=== PATIENT | female | born 1980 | race Caucasian/White ===

== ENCOUNTER 2024-05-21 17:54 | Emergency (ER) | payer OTHER, SELFPAY ==
[2024-05-21 17:55] VITALS: BP 120/74; PULSE 87; RESP 16; TEMP 36.4; O2SAT 98; BMI 28.0
--- NOTE | 2024-05-21 18:54 | ED.VIS.FEGU ---
HPI HPI - Female History of Present Illness Chief Complaint: Vag Bld, Preg Detail of Chief Complaint: Vaginal bleeding that started at 1600 Informant: patient and spouse/S.O. Pain Pain: Positive for - (No pelvic or lower abdominal pain) Bleeding Issue: Positive for Vaginal bleeding; Negative for Passing clots or Passing tissue Onset: Today (1600) Context: Sudden Onset (Patient states she put a pad on. She has not checked to see how much bleeding.) Associated Symptoms Associated Symptoms: Positive for Frequency and Missed Period; Negative for Dysuria, Urgency, Hematuria or Irregular Period Test: Positive Sexually: Positive for Active P: 4 Ab: 3 Narrative Narrative: Patient is a 43-year-old G8, P4 AB 3 (spontaneous) female who presents because of vaginal bleeding. She has had 4 ultrasounds. is intrauterine. She had bleeding at 6 weeks. It was determined to be due to a subchorionic hemorrhage. Follow-up ultrasounds revealed this resolved. She presently denies any lower abdominal pain, pelvic pain or low back pain. Patient does have frequency otherwise no urinary symptoms. Patient states she has O+ blood. Patient states she is never had a workup to determine the etiology of her miscarriages. There is no history of any bleeding diastases or any family history of any hematologic problems. She is followed by the OBs at the [facility]. Prior similar symptoms: Yes (6 weeks due to subchorionic hemorrhage.) Recent Illness/Hospitalization: No PFSH PFSH Medical History no medical history no medical history Allergy/AdvReac Type Severity Reaction Status Date / Time latex Allergy Intermediate Rash Verified 05/21/24 17:57 Social History (Updated 05/21/24 @ 18:[address] Hai Garcia MD) household members: spouse and children Smoking Status: Never smoker ROS ROS ED Constitutional Constitutional ED: Denies chills, fever(s) or subjective Eyes Eyes: Denies blurry vision or change in vision ENT ENT ED: Denies rhinorrhea or sore throat Cardiovascular Cardiovascular: Denies chest pain or palpitations Respiratory/Chest Respiratory/Chest: Denies cough, dyspnea or dyspnea on exertion Gastrointestinal Gastrointestinal: Denies abdominal pain, diarrhea, nausea or vomiting Genitourinary Genitourinary ED: Reports urinary frequency; Denies dysuria or hematuria Musculoskeletal Musculoskeletal: Denies arthralgias or neck pain Hematologic/Lymphatic Hematologic/Lymphatic: Denies easy bleeding or easy bruising EXAM Physical Exam Const Vital Signs: 05/21/24 17:55 Temperature 97.6 F L Temperature Source Temporal Pulse Rate 87 Respiratory Rate 16 Blood Pressure 120/74 Blood Pressure Mean 89 Pulse Ox 98 Oxygen Delivery Method Room Air Positive well nourished and well developed General Appearance ED: well developed and NAD; Negative for odor of alcohol detected HEENT Reports moist mucous membranes HEENT Narrative: Head is atraumatic no cephalic. Nares patent. Mucosa moist. Eyes PERRL and EOMs intact bilaterally General Eye ED: Negative for pale conjunctiva or scleral icterus Neck no lymphadenopathy, supple and no JVD Resp normal respiratory effort and clear to auscultation bilaterally Cardio regular rate, regular rhythm, S1 normal heart sound, no murmurs and no JVD GI normal to inspection, nondistended, normoactive bowel sounds, soft to palpation, non-tender and no masses; Negative for non-distended GI Narrative: Slight tympany to percussion. Back/Spine no CVA tenderness Extremity normal to inspection Neuro oriented x3 and CN's II-XII intact bilaterally Sensorium / Orientation: alert Psych mental status grossly normal Skin no rashes or lesions noted and no wounds MDM MDM MDM Narrative Medical decision making narrative: Since patient having no pain minimal amount of bleeding and has had 4 pelvic ultrasounds that reveals a single live intrauterine will have nurse check for heart tones. If this is unsuccessful we will perform transabdominal ultrasound to visualize the fetus and heartbeat. Treatment and Re-Evaluation Narrative: Transabdominal ultrasound reveals single live intrauterine . There is no obvious abnormality. In my opinion since patient has no pain minimal bleeding and transabdominal ultrasound performed in the ED does not reveal anything there is no indication for calling in the tech for an emergent ultrasound. Discharge Plan Triage Chief Complaint: Vag Bld, Preg ED Provider: Hai Garcia Dx/Rx/DC Orders Clinical Impression: Threatened in first trimester Instructions: Miscarriage Threatened Primary Care Provider: NOT,DEFINED Referrals: NOT,DEFINED [Primary Care Provider] - Activity Restrictions/Additional Instructions: 1. Pelvic rest 2. If you are bleeding more than 1 pad per hour for 4 continuous hours or passing large clots return to the emergency department otherwise follow-up with your bobtail driver at the [facility] Print Language: Montserratian Disposition Disposition: Home, Self Care
[2024-05-21 19:30] VITALS: BP 117/69; PULSE 74; RESP 16; TEMP 36.7; O2SAT 98
== END 2024-05-21 19:41 | disposition home or self-care (01) ==
LOC: ED 19:36
PROVIDERS: Emergency Provider Emergency Medicine; Visit Provider Emergency Medicine
DX: O20.0 Threatened abortion (principal); O09.521 Supervision of elderly multigravida, first trimester; O99.891 Other specified diseases and conditions complicating pregnancy; R35.0 Frequency of micturition; Z3A.00 Weeks of gestation of pregnancy not specified
CPT/HCPCS: 99282

== ENCOUNTER 2024-08-26 14:32 | Outpatient (CLI) | payer OTHER, SELFPAY ==
[2024-08-26 14:46] VITALS: BP 129/72; PULSE 88; PULSE 92; O2SAT 99
[2024-08-26 14:50] LABS: Color, Urine Yellow (Yellow); Glucose, Dipstick Normal (Normal); Ketone-Dipstick Negative (Negative); Leukocyte Esterase-Dipstick Negative /ul (Negative); Nitrite-Dipstick Negative (Negative); Occult Blood-Urine Negative /ul (Negative); Protein-Dipstick 15 mg/dl (Negative); Urine Bilirubin Dipstick Negative (Negative); Urine Clarity Clear (Clear); Urine Urobilinogen Normal (Normal)
--- NOTE | 2024-08-26 15:12 | US_ITS ---
EXAM: US , LIMITED CLINICAL INDICATION: Fall -Attention to Placenta TECHNIQUE: Real-time limited ultrasound of the maternal uterus with image documentation. COMPARISON: No relevant prior studies available. FINDINGS: FETUS: Cephalic presentation. heart rate 140 bpm. PLACENTA: Evjpzxzkt-[id number], not low-lying. No evidence of hemorrhage, previa or abruption. Central umbilical insertion. Grade 1. AMNIOTIC FLUID: Maximum vertical pocket 5.1 cm. Appears adequate. CERVIX: Not well seen on the transabdominal exam but not visibly dilated. US/OB Limited (No Biometrics) IMPRESSION: No acute complications of the placenta. Normal amniotic fluid volume. Live intrauterine fetus, cephalic. Electronically Signed: Sakina Lindsey MD at 17:01 EST ,
[2024-08-26] MEDS: Lactated Ringers 500 ML 999 ML IV (16:03)
[2024-08-26 16:10] LABS: ROM Internal Control Test YES-OK TO RESULT pt. (Internal QC); ROM Patient Test Negative (Negative); Record Kit Lot#, ROM+ K1972
[2024-08-26 16:58] LABS: Fetal Fibronectin Negative
[2024-08-26 16:59] LABS: Record Kit Lot#, fFN D4035
--- NOTE | 2024-08-27 15:24 | OB.TRI.NOTE ---
HPI - General General Date of Admission: 08/26/24 Date of Service: 08/26/24 Chief Complaint: cramping HPI Narrative DEB CHAVARRIA, is a 44 F who presents fell on 08/22. No bleeding. Has had normal movement. Hx of PTC with previous pregnancies. Term deliveries. FFn negative ROM negative NST appropriate for gestation age. US without evidence of abruption IV fluid hydration Closed thick and hi Maternal Data Information Final SHELDON: 11/25/24 Gestational age: 27 weeks PFSH PFSH Home Medications ?Medication ?Instructions ?Recorded ?Last Taken ?Type amoxicillin 875 mg tablet 875 mg PO Q12H 08/26/24 08/26/24 08:30 History famotidine 20 mg tablet (Acid 20 mg PO DAILY 08/26/24 08/25/24 19:30 History Controller) linaclotide 72 mcg capsule 72 mcg PO DAILY 08/26/24 08/25/24 19:30 History (Linzess) vit no.95-ferrous 1 tab PO DAILY 08/26/24 08/25/24 19:30 History fumarate 28 mg-folic acid 800 mcg tablet () venlafaxine 150 mg 150 mg PO DAILY 08/26/24 08/25/24 19:30 History capsule,extended release 24 hr Allergy/AdvReac Type Severity Reaction Status Date / Time latex Allergy Intermediate Rash Verified 08/26/24 14:52 Social History (Updated 05/21/24 @ 18:[address] Hai Garcia MD) household members: spouse and children Smoking Status: Never smoker History 8 Elective abortions Hx Para 4 Spontaneous abortions Hx # Term Pregnancies Ectopic pregnancies Hx # Pregnancies Multiple births # of living children ROS Constitutional Constitutional: Denies fatigue, fever(s) or malaise Eyes Eyes: Denies change in vision ENT HEENT: Denies dizziness or headache(s) Cardiovascular Cardiovascular: Denies chest pain, dyspnea or lightheadedness Respiratory/Chest Respiratory/Chest: Denies cough or dyspnea Gastrointestinal Gastrointestinal: Denies change in bowel habits Genitourinary Genitourinary: Denies burning urination or genital lesions Integumentary Integumentary: Denies rash Neurologic Neurologic: Denies confusion, dizziness, headache(s), numbness or weakness Physical Exam Const alert and no apparent distress General Appearance: cooperative HEENT normocephalic Resp normal respiratory effort GI soft to palpation GI Narrative: gravid, nontender, appropriate for gestational age Extremity no calf tenderness General Extremity: edema Skin no wounds Rashes: No rashes noted Psych activity/motor behavior normal NST FHR Rate Baby A Baseline: 130 Variability:: Moderate Accelerations:: 15 x 15 Decelerations:: None NST Reactive:: Yes FHR Category:: Category I Uterine Activity:: intermittent to q3-4 Assessment & Plan (1) Irregular contractions: (2) 27 weeks gestation of : PLAN: Plan Labor precautions, bleeding precautions RH positive Discharge home
== END 2024-08-26 17:25 | disposition home or self-care (01) ==
LOC: WPOUT 14:37 → WP 14:38
PROVIDERS: Visit Provider Obstetrics & Gynecology
DX: O47.02 False labor before 37 completed weeks of gestation, second trimester (principal); O99.891 Other specified diseases and conditions complicating pregnancy; R25.2 Cramp and spasm; Z3A.27 27 weeks gestation of pregnancy
CPT/HCPCS: 96360; 59025; 59050; 76815; 81002; 82731; 84112; 99221; G0378

== ENCOUNTER 2024-09-20 17:45 | Outpatient (CLI) | payer OTHER, SELFPAY ==
[2024-09-20 18:02] VITALS: BP 127/72; PULSE 96
[2024-09-20 18:04] VITALS: PULSE 82; O2SAT 99
[2024-09-20 19:40] LABS: Mucous, Urine 0 SEEN /hpf (<or=2+); Red Blood Cells-Urine 0 SEEN /hpf (0-5)
[2024-09-20 19:52] LABS: Color, Urine Yellow (Yellow); Glucose, Dipstick Normal (Normal); Ketone-Dipstick 15 mg/dl (Negative); Leukocyte Esterase-Dipstick 25 /ul (Negative); Nitrite-Dipstick Negative (Negative); Occult Blood-Urine Negative /ul (Negative); Protein-Dipstick 15 mg/dl (Negative); Urine Bilirubin Dipstick Negative (Negative); Urine Clarity Sl. Cloudy (Clear); Urine Urobilinogen Normal (Normal)
[2024-09-20 20:00] LABS: Bacteria 2+ /hpf (None Seen); Squamous Epithelial Cells - UA 0-5 SEEN /hpf (5-10); White Blood Cells 0-5 SEEN /hpf (0-5)
[2024-09-20 20:17] LABS: Fetal Fibronectin Negative
[2024-09-20 20:18] LABS: Record Kit Lot#, fFN D4035
--- NOTE | 2024-09-20 20:42 | OB.TRI.NOTE ---
HPI - General General Date of Admission: 09/20/24 Date of Service: 09/20/24 Chief Complaint: cramping HPI Narrative DEB CHAVARRIA, is a 44 F who presents cramping and contractions since noon. No bleeding. Possible dysuria. No deliveries Negative ffn. Urine sent for culture. Patient felt better after IV fluid bolus. closed /thick/ high Maternal Data Information Final SHELDON: 11/25/24 Gestational age: 30+4 PFSH PFSH Home Medications ?Medication ?Instructions ?Recorded ?Last Taken ?Type famotidine 20 mg tablet (Acid 20 mg PO DAILY 08/26/24 09/19/24 21:00 History Controller) 20 mg linaclotide 72 mcg capsule 72 mcg PO DAILY 08/26/24 09/19/24 08:00 History (Linzess) 72 mcg vit no.95-ferrous 1 tab PO DAILY 08/26/24 09/19/24 21:00 History fumarate 28 mg-folic acid 800 mcg 1 TAB tablet () venlafaxine 150 mg 150 mg PO DAILY 08/26/24 09/19/24 21:00 History capsule,extended release 24 hr 150 mg Allergy/AdvReac Type Severity Reaction Status Date / Time latex Allergy Intermediate Rash Verified 09/20/24 17:54 Social History household members: spouse and children Smoking Status: Never smoker History 8 Elective abortions Hx Para 4 Spontaneous abortions Hx # Term Pregnancies Ectopic pregnancies Hx # Pregnancies Multiple births # of living children Physical Exam Const alert and no apparent distress General Appearance: cooperative HEENT normocephalic Resp normal respiratory effort GI soft to palpation GI Narrative: gravid, nontender, appropriate for gestational age Manual OB Exam: dilated closed, effaced thick and station high Amniotic Fluid: no amniotic fluid noted Extremity normal to inspection Psych activity/motor behavior normal NST FHR Rate Baby A Baseline: 125 Variability:: Moderate Accelerations:: 15 x 15 Decelerations:: None NST Reactive:: Yes FHR Category:: Category I Uterine Activity:: irregular nonpalpable Assessment & Plan (1) 30 weeks gestation of : (2) uterine contractions: PLAN: Plan Discharge home. Increase PO hydration.
[2024-09-20] MEDS: Lactated Ringers 1,000 ML 999 ML IV (20:48)
== END 2024-09-20 22:00 | disposition home or self-care (01) ==
LOC: WPOUT 17:50 → WP 17:50
PROVIDERS: Referring Provider Obstetrics & Gynecology; Visit Provider Obstetrics & Gynecology
DX: O47.03 False labor before 37 completed weeks of gestation, third trimester (principal); R25.2 Cramp and spasm; Z79.899 Other long term (current) drug therapy; Z3A.30 30 weeks gestation of pregnancy
CPT/HCPCS: 96360; 59025; 59050; 81001; 82731; 87086; 87088; 99221; G0378

== ENCOUNTER 2024-10-06 10:32 | Outpatient (CLI) | payer OTHER, SELFPAY ==
[2024-10-06] VITALS (14 sets, daily range): BP systolic 100–117; BP diastolic 54–78; PULSE 100–134; RESP 20; TEMP 36.9–37.2; O2SAT 84–100; BMI 29.8
[2024-10-06] MEDS: Lactated Ringers 1,000 ML 999 ML IV (11:40)
[2024-10-06] MEDS: Ondansetron 4 MG/2 ML Vial IV (11:51)
[2024-10-06 11:53] LABS: Color, Urine Yellow (Yellow); Glucose, Dipstick Normal (Normal); Leukocyte Esterase-Dipstick 100 /ul (Negative); Nitrite-Dipstick Negative (Negative); Occult Blood-Urine Negative /ul (Negative); Protein-Dipstick 30 mg/dl (Negative); Specific Gravity, Urine 1.025 (1.002-1.030); Urine Clarity Sl. Cloudy (Clear); Urine Urobilinogen 1 mg/dl (Normal)
[2024-10-06 11:54] LABS: Hemoglobin 10.1 g/dL (12.0-15.0); Mean Corp Hgb Conc 33.7 g/dL (32-36); Mean Corpuscular Hgb 32.2 pg (27.0-32.0); Mean Corpuscular Volume 95.5 fL (81-99); Mean Platelet Vol. 10.4 fl (6.2-12.0); Platelet Count 151 K/mm3 (150-450); RBC Distribution Width CV 13.1 % (11.6-14.6); Red Blood Count 3.14 M/mm3 (4.2-5.4); Urine Bilirubin Dipstick 1 mg/dL (Negative); White Blood Count 7.2 K/mm3 (4.4-11.0)
[2024-10-06 11:57] LABS: Ketone-Dipstick 150 mg/dl (Negative)
[2024-10-06 12:00] LABS: Transitional Epithelial - Ur 0-5 SEEN /hpf (0-5); White Blood Cells 0-5 SEEN /hpf (0-5)
[2024-10-06 12:01] LABS: Bacteria 3+ /hpf (None Seen); Mucous, Urine 1+ /hpf (<or=2+); Red Blood Cells-Urine 0 SEEN /hpf (0-5); Squamous Epithelial Cells - UA 10-25 SEEN /hpf (5-10)
[2024-10-06 12:22] LABS: Bedside Glucose 70 mg/dL (74-106)
[2024-10-06] MEDS: Acetaminophen 500 MG Tablet 1000 MG PO (12:31)
[2024-10-06] MEDS: Lactated Ringers 1,000 ML 200 ML IV (12:50)
[2024-10-06 13:28] LABS: ALB/GLOB Ratio 0.7 RATIO (0.9-2.4); AST(SGOT) 14 U/L (15-37); Alanine Aminotransfer ALT/SGPT 13 U/L (13-56); Albumin, Serum 2.7 g/dL (3.2-5.0); Alkaline Phosphatase 145 U/L (45-117); Anion Gap 10 (5-15); BUN 7 mg/dL (7-18); BUN/Creat Ratio 13.1 RATIO (10-20); Calcium,Total 8.6 mg/dL (8.5-10.1); Chloride 105 mmol/L (98-107); Creatinine, Serum 0.54 mg/dL (0.55-1.02); EST Glomerular Filtration Rate 133 mL/min (>60); Est Glom Filt Rate - Afr Amer 161 mL/min (>60); Glucose 85 mg/dL (74-106); Potassium 3.7 mmol/L (3.5-5.1); Protein, Total 6.7 g/dL (6.4-8.2); Sodium Level 136 mmol/L (136-145)
--- NOTE | 2024-10-06 13:39 | US_ITS ---
PROCEDURE: LIMITED ABDOMINAL ULTRASOUND REASON FOR EXAM: Right upper quadrant pain. 33 weeks . COMPARISON: None FINDINGS: Liver: The liver measures 14.9 cm in length and is normal in echogenicity. No focal hepatic mass is identified. There is hepatopetal portal venous flow. Gallbladder: The gallbladder contains sludge. No gallstones are noted. Negative sonographic Naik's sign. No pericholecystic fluid noted. No gallbladder wall thickening noted. Common bile duct: Normal measuring 4.3 mm. Pancreas: Not well visualized secondary to overlying bowel gas. Right kidney: 11.4 cm x 5.1 cm x 5.1 cm. Normal cortical thickness and echogenicity. No renal calculi identified. No hydronephrosis. Visualized portions of the right kidney are unremarkable. No right upper quadrant ascites. US/Gallbladder IMPRESSION: Gallbladder sludge otherwise unremarkable ultrasound of the right upper quadran t. Reading Location: [id number]
[2024-10-06] MEDS: Morphine 2 MG/ML Syringe 1 MG IV (13:55)
[2024-10-06 14:15] LABS: Amylase 40 U/L (25-115); Lipase 35 U/L (73-393)
[2024-10-06 16:06] LABS: Bedside Glucose 65 mg/dL (74-106)
[2024-10-06 16:06] LABS: Bedside Glucose 63 mg/dL (74-106)
[2024-10-06 16:25] LABS: Bedside Glucose 65 mg/dL (74-106)
[2024-10-06] MEDS: Metoclopramide 10 MG/2 ML Vial IV (16:38)
[2024-10-06 16:53] LABS: Bedside Glucose 73 mg/dL (74-106)
--- NOTE | 2024-10-06 17:13 | OB.TRI.NOTE ---
HPI - General HPI Narrative DEB CHAVARRIA, is a 44 F who presents to triage with RUQ pain, nausea, emesis, headache, seeing spots and cramping. She is GDM A2 and unable to keep an food or drink down. Maternal Data Information SHELDON Calculator Estimated Delivery Date Method Current WG Current Estimate 11/25/24 Manual 32w 6d PFSH PFSH Home Medications ?Medication ?Instructions ?Recorded ?Last Taken ?Type famotidine 20 mg tablet (Acid 20 mg PO DAILY 08/26/24 10/05/24 20:00 History Controller) 20 mg linaclotide 72 mcg capsule 72 mcg PO DAILY 08/26/24 10/05/24 20:00 History (Linzess) 72 mcg vit no.95-ferrous 1 tab PO DAILY 08/26/24 10/05/24 20:00 History fumarate 28 mg-folic acid 800 mcg 1 TAB tablet () venlafaxine 150 mg 150 mg PO DAILY 08/26/24 10/05/24 20:00 History capsule,extended release 24 hr 150 mg insulin NPH isoph U-100 human 100 10 unit subcut DAILY 10/06/24 10/05/24 20:00 History unit/mL (3 mL) subcutaneous pen 10 units (Humulin N NPH U-100 Insulin KwikPen) ondansetron 4 mg disintegrating 4 mg PO Q8H PRN nausea and 10/06/24 Unknown Rx tablet vomiting #20 tabs oseltamivir 75 mg capsule (Tamiflu) 75 mg PO BID 5 days #10 caps 10/06/24 Unknown Rx Allergy/AdvReac Type Severity Reaction Status Date / Time latex Allergy Intermediate Rash Verified 10/06/24 16:28 Social History household members: spouse and children Smoking Status: Never smoker History 8 Elective abortions Hx Para 4 Spontaneous abortions Hx # Term Pregnancies Ectopic pregnancies Hx # Pregnancies Multiple births # of living children ROS Eyes Eyes: Denies blurry vision Cardiovascular Cardiovascular: Reports none; Denies chest pain at rest, chest pain with activity or dizziness Respiratory/Chest Respiratory/Chest: Denies cough or dyspnea Gastrointestinal Gastrointestinal: Reports other Genitourinary Genitourinary: Denies dysuria Musculoskeletal Musculoskeletal: Reports none Integumentary Integumentary: Reports none; Denies rash Neurologic Neurologic: Denies dizziness or other visual disturbances Psychiatric Psychiatric: Reports none Physical Exam Const alert and no apparent distress General Appearance: cooperative Orientation / Consciousness: awake Exam Limitations: no limitations HEENT normocephalic Eyes General Eye: normal appearance of both eyes Neck full ROM Chest inspection of chest normal Resp normal respiratory effort and normal air movement Effort and Inspection: symmetric chest movement Auscultation: clear to auscultation bilaterally Cardio regular rate GI soft to palpation, non-tender and non-distended Inspection: and other Back/Spine normal ROM Extremity full ROM, normal capillary refill and no calf tenderness Skin no rashes or lesions noted Neuro oriented x3 and CN's II-XII intact bilaterally Psych mental status grossly normal NST FHR Rate Baby A Baseline: 150 Variability:: Moderate Accelerations:: 15 x 15 and 10 x 10 NST Reactive:: Yes Uterine Activity:: irritability Assessment & Plan (1) uterine contractions: (2) Nausea & vomiting: (3) 32 weeks gestation of : (4) GDM, class A2: (5) RUQ abdominal pain: (6) Headache: PLAN: Plan BP normal Labs normal IV fluids- 2 liters bolus- completed Zofran 4 mg IV for nausea Taking oral Gallbladder US shows sludge No insulin until taking full PO + Influenza - Tamaflu 75 mg PO BID x 5 days D/C home with follow up in office next week Dr. Martins present and involved with plan of care
== END 2024-10-06 17:39 | disposition home or self-care (01) ==
LOC: WPOUT 10:38 → WP 10:39
PROVIDERS: Obstetrics & Gynecology; Referring Provider Advanced Practice Midwife; Visit Provider Advanced Practice Midwife
DX: O47.03 False labor before 37 completed weeks of gestation, third trimester (principal); Z79.4 Long term (current) use of insulin; Z79.899 Other long term (current) drug therapy; Z3A.32 32 weeks gestation of pregnancy; O21.9 Vomiting of pregnancy, unspecified; O24.414 Gestational diabetes mellitus in pregnancy, insulin controlled; O99.891 Other specified diseases and conditions complicating pregnancy; R10.11 Right upper quadrant pain; R51.9 Headache, unspecified
CPT/HCPCS: 96365; 96366; 96361; 36415; 59025; 59050; 76705; 80053; 81001; 82150; 82962; 83690; 85027; 87086; 87088; 87631; 99221; G0378; J2405

== ENCOUNTER 2024-10-17 10:25 | Outpatient (CLI) | payer OTHER, SELFPAY ==
[2024-10-17 10:46] VITALS: BMI 31.0
[2024-10-17] MEDS: Lactated Ringers 1,000 ML 999 ML IV ×2 (11:05→12:37)
[2024-10-17 11:11] VITALS: PULSE 86; O2SAT 98
[2024-10-17 11:12] VITALS: BP 123/84; PULSE 78; RESP 16; TEMP 36.6
[2024-10-17 12:30] LABS: Bedside Glucose 74 mg/dL (74-106)
[2024-10-17 12:47] LABS: Color, Urine Yellow (Yellow); Glucose, Dipstick Normal (Normal); Ketone-Dipstick Negative (Negative); Leukocyte Esterase-Dipstick Negative /ul (Negative); Nitrite-Dipstick Negative (Negative); Occult Blood-Urine Negative /ul (Negative); Protein-Dipstick 15 mg/dl (Negative); Urine Bilirubin Dipstick Negative (Negative); Urine Clarity Sl. Cloudy (Clear); Urine Urobilinogen Normal (Normal); Urine pH 6.5 (5.0 - 8.0)
[2024-10-17 13:17] LABS: Mucous, Urine 0 SEEN /hpf (<or=2+); White Blood Cells 0 SEEN /hpf (0-5)
[2024-10-17 13:18] LABS: Color, Urine Yellow (Yellow); Glucose, Dipstick Normal (Normal); Ketone-Dipstick Negative (Negative); Leukocyte Esterase-Dipstick Negative /ul (Negative); Nitrite-Dipstick Negative (Negative); Occult Blood-Urine Negative /ul (Negative); Protein-Dipstick Negative (Negative); Urine Bilirubin Dipstick Negative (Negative); Urine Clarity Clear (Clear); Urine Urobilinogen Normal (Normal); Urine pH 6.5 (5.0 - 8.0)
[2024-10-17 13:43] LABS: Bacteria 1+ /hpf (None Seen); Red Blood Cells-Urine 0-5 SEEN /hpf (0-5); Squamous Epithelial Cells - UA 0-5 SEEN /hpf (5-10)
[2024-10-17] MEDS: Ondansetron 4 MG/2 ML Vial IV (14:08)
[2024-10-17] MEDS: Terbutaline 1 MG/ML Vial 0.25 MG SC (14:11)
--- NOTE | 2024-10-17 19:45 | OB.TRI.NOTE ---
HPI - General General Date of Admission: 10/17/24 Date of Service: 10/17/24 Chief Complaint: contractions HPI Narrative DEB CHAVARRIA, is a 44 F who presents from the office with frequent contractions. Was ill about 2 weeks ago with flu. No bleeding No loss of fluid. 1 cm in office. IVF bolus of 1 liter. No cervical change. Was not able to give a urine sample after fluid bolus. Another 500 cc given. Urine clear. No cervical change. Terb given for comfort and contractions decreased. Cat I tracing. Maternal Data Information SHELDON Calculator Estimated Delivery Date Method Current WG Current Estimate 11/25/24 Manual 34w 3d Final SHELDON: 11/25/24 Gestational age: 34+3 PFSH PFSH Home Medications ?Medication ?Instructions ?Recorded ?Last Taken ?Type linaclotide 72 mcg capsule 72 mcg PO DAILY 08/26/24 10/05/24 20:00 History (Linzess) 72 mcg vit no.95-ferrous 1 tab PO DAILY 08/26/24 10/05/24 20:00 History fumarate 28 mg-folic acid 800 mcg 1 TAB tablet () venlafaxine 150 mg 150 mg PO DAILY 08/26/24 10/05/24 20:00 History capsule,extended release 24 hr 150 mg insulin NPH isoph U-100 human 100 10 unit subcut DAILY 10/06/24 10/16/24 History unit/mL (3 mL) subcutaneous pen (Humulin N NPH U-100 Insulin KwikPen) Allergy/AdvReac Type Severity Reaction Status Date / Time latex Allergy Intermediate Rash Verified 10/17/24 10:47 Social History household members: spouse and children Smoking Status: Never smoker History 8 Elective abortions Hx Para 4 Spontaneous abortions Hx # Term Pregnancies Ectopic pregnancies Hx # Pregnancies Multiple births # of living children NST FHR Rate Baby A Baseline: 130 Variability:: Moderate Accelerations:: 15 x 15 Decelerations:: None NST Reactive:: Yes FHR Category:: Category I Assessment & Plan (1) 34 weeks gestation of : (2) uterine contractions: PLAN: Plan Labor precautions. Keep scheduled appointments. Increase hydration
== END 2024-10-17 16:20 | disposition home or self-care (01) ==
LOC: WPOUT 10:28 → WP 10:29
PROVIDERS: Referring Provider Obstetrics & Gynecology; Visit Provider Obstetrics & Gynecology
DX: O47.03 False labor before 37 completed weeks of gestation, third trimester (principal); Z3A.34 34 weeks gestation of pregnancy
CPT/HCPCS: 96374; 96361; 59025; 59050; 81001; 81002; 82962; 99221; G0378; J2405

== ENCOUNTER 2024-10-23 15:26 | Outpatient (CLI) | payer OTHER, SELFPAY ==
[2024-10-23] VITALS (12 sets, daily range): BP systolic 120–162; BP diastolic 70–94; PULSE 81–98; RESP 16; TEMP 36.4; O2SAT 94; BMI 30.1
[2024-10-23 17:08] LABS: Hematocrit 31.5 % (37-47); Hemoglobin 10.5 g/dL (12.0-15.0); Mean Corp Hgb Conc 33.3 g/dL (32-36); Mean Corpuscular Hgb 31.7 pg (27.0-32.0); Mean Corpuscular Volume 95.2 fL (81-99); Platelet Count 242 K/mm3 (150-450); RBC Distribution Width CV 12.6 % (11.6-14.6); RBC Distribution Width SD 43.2 fl (35.1-43.9); Red Blood Count 3.31 M/mm3 (4.2-5.4); White Blood Count 10.1 K/mm3 (4.4-11.0)
[2024-10-23 17:21] LABS: Color, Urine Yellow (Yellow); Glucose, Dipstick Normal (Normal); Ketone-Dipstick 5 mg/dl (Negative); Leukocyte Esterase-Dipstick Negative /ul (Negative); Nitrite-Dipstick Negative (Negative); Occult Blood-Urine Negative /ul (Negative); Protein-Dipstick 15 mg/dl (Negative); Urine Bilirubin Dipstick Negative (Negative); Urine Clarity Sl. Cloudy (Clear); Urine Urobilinogen Normal (Normal); Urine pH 6.5 (5.0 - 8.0)
[2024-10-23 17:24] LABS: AST(SGOT) 10 U/L (15-37); Alanine Aminotransfer ALT/SGPT 20 U/L (13-56); EST Glomerular Filtration Rate 116 mL/min (>60); Est Glom Filt Rate - Afr Amer 141 mL/min (>60); Uric Acid 4.5 mg/dL (2.6-6.0)
[2024-10-23 17:39] LABS: ROM Internal Control Test YES-OK TO RESULT pt. (Internal QC); ROM Patient Test Negative (Negative); Record Kit Lot#, ROM+ K2871
--- NOTE | 2024-10-23 18:18 | OB.TRI.NOTE ---
HPI - General General Date of Admission: 10/23/24 Date of Service: 10/23/24 Chief Complaint: ctx's HPI Narrative DEB CHAVARRIA, is a 44 F who presents from office for eval of ctx's. Has been feeling ctx's for days to weeks. Worsening in intensity. No vb. [place] 1 small gush of fluid after vaginal exam in office. No constant leaking. No PERRY or vision changes. Maternal Data Information SHELDON Calculator Estimated Delivery Date Method Current WG Current Estimate 11/25/24 Manual 35w 2d PFSH PFSH Medical History (Updated 10/23/24 @ 18:[address] Viviana Lawler, DO) uterine contractions Home Medications ?Medication ?Instructions ?Recorded ?Last Taken ?Type linaclotide 72 mcg capsule 72 mcg PO DAILY diverticulitis 08/26/24 10/22/24 History (Linzess) vit no.95-ferrous 1 tab PO DAILY 08/26/24 10/22/24 History fumarate 28 mg-folic acid 800 mcg tablet () venlafaxine 150 mg 150 mg PO DAILY 08/26/24 10/22/24 History capsule,extended release 24 hr insulin NPH isoph U-100 human 100 10 unit subcut DAILY 10/06/24 10/22/24 History unit/mL (3 mL) subcutaneous pen (Humulin N NPH U-100 Insulin KwikPen) pantoprazole 20 mg tablet,delayed 20 mg PO DAILY 10/23/24 10/22/24 History release (Protonix) Allergy/AdvReac Type Severity Reaction Status Date / Time latex Allergy Intermediate Rash Verified 10/23/24 16:00 Social History household members: spouse and children Smoking Status: Never smoker History 8 Elective abortions Hx Para 4 Spontaneous abortions Hx # Term Pregnancies Ectopic pregnancies Hx # Pregnancies Multiple births # of living children Physical Exam Const alert and no apparent distress General Appearance: comfortable Resp normal respiratory effort GI soft to palpation, non-tender and non-distended Narrative: Cvx 0.5/50/-3 NST FHR Rate Baby A Baseline: 130 Variability:: Moderate Accelerations:: 15 x 15 Decelerations:: None NST Reactive:: Yes FHR Category:: Category I Uterine Activity:: ctx's spacing out to q 2-3 min Assessment & Plan (1) 35 weeks gestation of : (2) uterine contractions: PLAN: Cervical exam unchanged. Return precautions given. Urine with ketones. Encouraged PO hydration. (3) Elevated blood pressure reading: PLAN: No symptoms of pre e. Pre e panel so far WNL. As long as p/c ratio normal, ok to d/c home with follow up in office.
[2024-10-23 18:51] LABS: Protein, Urine (Random) 6.4 mg/dL (<11.9); Protein:Creat Ratio 117 mg/g CRE (0-200)
== END 2024-10-23 19:00 | disposition home or self-care (01) ==
LOC: WPOUT 15:27 → WP 15:28
PROVIDERS: Referring Provider Obstetrics & Gynecology; Visit Provider Obstetrics & Gynecology
DX: O47.03 False labor before 37 completed weeks of gestation, third trimester (principal); Z79.4 Long term (current) use of insulin; Z79.899 Other long term (current) drug therapy; Z3A.35 35 weeks gestation of pregnancy; O99.891 Other specified diseases and conditions complicating pregnancy; R03.0 Elevated blood-pressure reading, without diagnosis of hypertension
CPT/HCPCS: 36415; 59025; 59050; 81002; 82565; 82570; 84112; 84156; 84450; 84460; 84550; 85027; 99221; G0378

== ENCOUNTER 2024-11-07 11:15 | Inpatient (IN) | payer OTHER, SELFPAY ==
[2024-11-07] VITALS (108 sets, daily range): BP systolic 71–167; BP diastolic 43–96; PULSE 71–135; RESP 15–22; TEMP 36.6–37.3; O2SAT 84–100; BMI 29.9
[2024-11-07 11:04] LABS: Hematocrit 28.8 % (37-47); Hemoglobin 9.6 g/dL (12.0-15.0); Mean Corp Hgb Conc 33.3 g/dL (32-36); Mean Corpuscular Hgb 30.6 pg (27.0-32.0); Mean Corpuscular Volume 91.7 fL (81-99); Mean Platelet Vol. 11.2 fl (6.2-12.0); Platelet Count 175 K/mm3 (150-450); RBC Distribution Width CV 12.7 % (11.6-14.6); RBC Distribution Width SD 42.1 fl (35.1-43.9); Red Blood Count 3.14 M/mm3 (4.2-5.4); White Blood Count 8.4 K/mm3 (4.4-11.0)
[2024-11-07] MEDS: Magnesium Sulfate 4gm/100mL 4 GM/100 ML IV.SOLN. IV (11:38)
[2024-11-07] MEDS: Lactated Ringers 1,000 ML 50 ML IV ×2 (11:40→23:55)
[2024-11-07] MEDS: NIFEdipine 10 MG Capsule PO (11:40)
[2024-11-07 11:48] LABS: AST(SGOT) 14 U/L (<=31); Alanine Aminotransfer ALT/SGPT 5 U/L (<=34); Creatinine, Serum 0.59 mg/dL (0.70-1.20); EST Glomerular Filtration Rate 115 (>60); Estimated Creatinine Clearance 145.15 ml/min (50-250)
[2024-11-07 11:59] LABS: Protein, Urine (Random) 20.7 mg/dL (0.0-12.0); Protein:Creat Ratio 156 mg/g CRE (0-200)
[2024-11-07] MEDS: Magnesium Sulfate 20 GM/500 ML BAG IV (12:00)
[2024-11-07] MEDS: NIFEdipine 30 MG Tablet PO (12:30)
[2024-11-07 12:37] LABS: Bedside Glucose 70 mg/dL (74-106)
[2024-11-07] MEDS: miSOPROStol 25 MCG TABLET VAGINAL (13:32)
[2024-11-07 14:09] LABS: Bedside Glucose 72 mg/dL (74-106)
--- NOTE | 2024-11-07 17:46 | PCM.HP.OB ---
HPI - General General Date of Admission: 11/07/24 Date of Service: 11/07/24 Chief Complaint: Elevated BP in 3rd trimester HPI Narrative DEB CHAVARRIA, is a 44 F who presents from the office for R/o pre-E. BP severe on admission. No PERRY. Was having CP that has now resolved. GDM on NPH qhs for control. Maternal Data Information SHELDON Calculator Estimated Delivery Date Method Current WG Current Estimate 11/25/24 Manual 37w 3d Final SHELDON: 11/25/24 Gestational age: 37+3 PFSH PFSH Medical History uterine contractions Home Medications ?Medication ?Instructions ?Recorded ?Last Taken ?Type linaclotide 72 mcg capsule 72 mcg PO DAILY diverticulitis 08/26/24 11/06/24 History (Linzess) vit no.95-ferrous 1 tab PO DAILY 08/26/24 11/06/24 History fumarate 28 mg-folic acid 800 mcg tablet () venlafaxine 150 mg 150 mg PO DAILY 08/26/24 11/06/24 History capsule,extended release 24 hr insulin NPH isoph U-100 human 100 10 unit subcut DAILY 10/06/24 11/06/24 History unit/mL (3 mL) subcutaneous pen (Humulin N NPH U-100 Insulin KwikPen) pantoprazole 20 mg tablet,delayed 20 mg PO DAILY 10/23/24 11/06/24 History release (Protonix) Allergy/AdvReac Type Severity Reaction Status Date / Time latex Allergy Intermediate Rash Verified 11/07/24 17:35 Social History household members: spouse and children Smoking Status: Never smoker History 8 Elective abortions Hx Para 4 Spontaneous abortions Hx # Term Pregnancies Ectopic pregnancies Hx # Pregnancies Multiple births # of living children NST FHR Rate Baby A Baseline: 130 Variability:: Moderate Accelerations:: 15 x 15 Decelerations:: None NST Reactive:: Yes FHR Category:: Category I ROS Constitutional Constitutional: Denies fatigue, fever(s) or malaise Eyes Eyes: Denies change in vision ENT HEENT: Denies dizziness or headache(s) Cardiovascular Cardiovascular: Denies chest pain, dyspnea or lightheadedness Respiratory/Chest Respiratory/Chest: Denies cough or dyspnea Gastrointestinal Gastrointestinal: Denies change in bowel habits Genitourinary Genitourinary: Denies burning urination or genital lesions Integumentary Integumentary: Denies rash Neurologic Neurologic: Denies confusion, dizziness, headache(s), numbness or weakness Vital Signs Vital Signs Vital Signs: 11/07/24 10:03 11/07/24 10:03 11/07/24 10:04 Temperature Temperature Source Pulse Rate 78 87 Respiratory Rate Respiratory Effort Respiratory Depth Respiratory Pattern Blood Pressure 140/91 H BP Systolic 140 BP Diastolic 91 Pulse Ox Oxygen Delivery Method 11/07/24 10:04 11/07/24 10:05 11/07/24 10:05 Temperature Temperature Source Temporal Pulse Rate Respiratory Rate 16 Respiratory Effort Respiratory Depth Respiratory Pattern Blood Pressure BP Systolic BP Diastolic Pulse Ox 100 Oxygen Delivery Method 11/07/24 10:05 11/07/24 10:18 11/07/24 10:18 Temperature 98.1 F Temperature Source Pulse Rate 88 Respiratory Rate Respiratory Effort Respiratory Depth Respiratory Pattern Blood Pressure 155/96 H BP Systolic 155 BP Diastolic 96 Pulse Ox Oxygen Delivery Method 11/07/24 10:33 11/07/24 10:33 11/07/24 10:48 Temperature Temperature Source Pulse Rate 78 Respiratory Rate Respiratory Effort Respiratory Depth Respiratory Pattern Blood Pressure 157/92 H 167/96 H BP Systolic 157 167 BP Diastolic 92 96 Pulse Ox Oxygen Delivery Method 11/07/24 10:48 11/07/24 11:03 11/07/24 11:03 Temperature Temperature Source Pulse Rate 90 94 Respiratory Rate Respiratory Effort Respiratory Depth Respiratory Pattern Blood Pressure 164/96 H BP Systolic 164 BP Diastolic 96 Pulse Ox Oxygen Delivery Method 11/07/24 11:34 11/07/24 11:34 11/07/24 11:38 Temperature Temperature Source Temporal Pulse Rate 81 Respiratory Rate Respiratory Effort Respiratory Depth Respiratory Pattern Blood Pressure 158/92 H BP Systolic 158 BP Diastolic 92 Pulse Ox Oxygen Delivery Method 11/07/24 11:38 11/07/24 11:42 11/07/24 11:42 Temperature 98 F Temperature Source Temporal Pulse Rate 86 80 Respiratory Rate 16 Respiratory Effort Normal Respiratory Depth Normal Respiratory Pattern Normal Blood Pressure BP Systolic BP Diastolic Pulse Ox 98 98 Oxygen Delivery Method Room Air 11/07/24 11:47 11/07/24 11:47 11/07/24 11:49 Temperature Temperature Source Pulse Rate 84 Respiratory Rate Respiratory Effort Respiratory Depth Respiratory Pattern Blood Pressure 131/81 H BP Systolic 131 BP Diastolic 81 Pulse Ox 98 Oxygen Delivery Method 11/07/24 11:49 11/07/24 11:50 11/07/24 11:52 Temperature Temperature Source Pulse Rate 90 88 Respiratory Rate 16 Respiratory Effort Normal Respiratory Depth Normal Respiratory Pattern Normal Blood Pressure BP Systolic BP Diastolic Pulse Ox Oxygen Delivery Method Room Air 11/07/24 11:52 11/07/24 11:57 11/07/24 11:57 Temperature Temperature Source Pulse Rate 100 Respiratory Rate Respiratory Effort Respiratory Depth Respiratory Pattern Blood Pressure BP Systolic BP Diastolic Pulse Ox 97 98 Oxygen Delivery Method 11/07/24 12:02 11/07/24 12:02 11/07/24 12:03 Temperature Temperature Source Pulse Rate 81 Respiratory Rate Respiratory Effort Respiratory Depth Respiratory Pattern Blood Pressure 139/88 H BP Systolic 139 BP Diastolic 88 Pulse Ox 97 Oxygen Delivery Method 11/07/24 12:03 11/07/24 12:05 11/07/24 12:05 Temperature 98.6 F Temperature Source Temporal Temporal Pulse Rate 86 Respiratory Rate 18 Respiratory Effort Respiratory Depth Respiratory Pattern Blood Pressure BP Systolic BP Diastolic Pulse Ox Oxygen Delivery Method Room Air 11/07/24 12:07 11/07/24 12:07 11/07/24 12:12 Temperature Temperature Source Pulse Rate 81 77 Respiratory Rate Respiratory Effort Respiratory Depth Respiratory Pattern Blood Pressure BP Systolic BP Diastolic Pulse Ox 97 Oxygen Delivery Method 11/07/24 12:12 11/07/24 12:17 11/07/24 12:17 Temperature Temperature Source Pulse Rate 81 Respiratory Rate Respiratory Effort Respiratory Depth Respiratory Pattern Blood Pressure BP Systolic BP Diastolic Pulse Ox 97 98 Oxygen Delivery Method 11/07/24 12:18 11/07/24 12:18 11/07/24 12:22 Temperature Temperature Source Pulse Rate 82 82 Respiratory Rate Respiratory Effort Respiratory Depth Respiratory Pattern Blood Pressure 155/84 H BP Systolic 155 BP Diastolic 84 Pulse Ox Oxygen Delivery Method 11/07/24 12:22 11/07/24 12:28 11/07/24 12:28 Temperature Temperature Source Pulse Rate 87 Respiratory Rate Respiratory Effort Respiratory Depth Respiratory Pattern Blood Pressure BP Systolic BP Diastolic Pulse Ox 98 97 Oxygen Delivery Method 11/07/24 12:35 11/07/24 12:35 11/07/24 12:35 Temperature Temperature Source Temporal Pulse Rate 80 Respiratory Rate Respiratory Effort Respiratory Depth Respiratory Pattern Blood Pressure BP Systolic BP Diastolic Pulse Ox 98 Oxygen Delivery Method 11/07/24 12:35 11/07/24 12:39 11/07/24 12:39 Temperature 98.4 F Temperature Source Temporal Pulse Rate 100 Respiratory Rate 15 Respiratory Effort Respiratory Depth Respiratory Pattern Blood Pressure 163/90 H BP Systolic 163 BP Diastolic 90 Pulse Ox Oxygen Delivery Method Room Air 11/07/24 12:40 11/07/24 12:40 11/07/24 12:40 Temperature Temperature Source Pulse Rate 99 Respiratory Rate Respiratory Effort Respiratory Depth Respiratory Pattern Blood Pressure 147/76 H BP Systolic 147 BP Diastolic 76 Pulse Ox 97 Oxygen Delivery Method 11/07/24 12:45 11/07/24 12:45 11/07/24 12:49 Temperature Temperature Source Pulse Rate 89 Respiratory Rate Respiratory Effort Respiratory Depth Respiratory Pattern Blood Pressure 139/85 H BP Systolic 139 BP Diastolic 85 Pulse Ox 98 Oxygen Delivery Method 11/07/24 12:49 11/07/24 12:50 11/07/24 12:50 Temperature Temperature Source Pulse Rate 93 87 Respiratory Rate Respiratory Effort Respiratory Depth Respiratory Pattern Blood Pressure BP Systolic BP Diastolic Pulse Ox 98 Oxygen Delivery Method 11/07/24 12:55 11/07/24 12:55 11/07/24 13:00 Temperature Temperature Source Pulse Rate 89 83 Respiratory Rate Respiratory Effort Respiratory Depth Respiratory Pattern Blood Pressure BP Systolic BP Diastolic Pulse Ox 98 Oxygen Delivery Method 11/07/24 13:00 11/07/24 13:04 11/07/24 13:04 Temperature Temperature Source Pulse Rate 83 Respiratory Rate Respiratory Effort Respiratory Depth Respiratory Pattern Blood Pressure 136/87 H BP Systolic 136 BP Diastolic 87 Pulse Ox 98 Oxygen Delivery Method 11/07/24 13:05 11/07/24 13:05 11/07/24 13:05 Temperature Temperature Source Temporal Pulse Rate 87 Respiratory Rate Respiratory Effort Respiratory Depth Respiratory Pattern Blood Pressure BP Systolic BP Diastolic Pulse Ox 98 Oxygen Delivery Method 11/07/24 13:05 11/07/24 13:10 11/07/24 13:10 Temperature 99.1 F Temperature Source Temporal Pulse Rate 86 Respiratory Rate 16 Respiratory Effort Normal Non-Labored Respiratory Depth Normal Respiratory Pattern Normal Blood Pressure BP Systolic BP Diastolic Pulse Ox 98 Oxygen Delivery Method Room Air 11/07/24 13:18 11/07/24 13:18 11/07/24 13:18 Temperature Temperature Source Pulse Rate 91 Respiratory Rate Respiratory Effort Respiratory Depth Respiratory Pattern Blood Pressure 142/83 H BP Systolic 142 BP Diastolic 83 Pulse Ox 98 Oxygen Delivery Method 11/07/24 13:26 11/07/24 13:26 11/07/24 13:31 Temperature Temperature Source Pulse Rate 92 84 Respiratory Rate Respiratory Effort Respiratory Depth Respiratory Pattern Blood Pressure BP Systolic BP Diastolic Pulse Ox 99 Oxygen Delivery Method 11/07/24 13:31 11/07/24 13:33 11/07/24 13:33 Temperature Temperature Source Pulse Rate 87 Respiratory Rate Respiratory Effort Respiratory Depth Respiratory Pattern Blood Pressure 134/83 H BP Systolic 134 BP Diastolic 83 Pulse Ox 99 Oxygen Delivery Method 11/07/24 13:36 11/07/24 13:36 11/07/24 13:41 Temperature Temperature Source Pulse Rate 96 87 Respiratory Rate Respiratory Effort Respiratory Depth Respiratory Pattern Blood Pressure BP Systolic BP Diastolic Pulse Ox 98 Oxygen Delivery Method 11/07/24 13:41 11/07/24 13:46 11/07/24 13:46 Temperature Temperature Source Pulse Rate 87 Respiratory Rate Respiratory Effort Respiratory Depth Respiratory Pattern Blood Pressure BP Systolic BP Diastolic Pulse Ox 98 98 Oxygen Delivery Method 11/07/24 13:48 11/07/24 13:48 11/07/24 13:51 Temperature Temperature Source Pulse Rate 90 96 Respiratory Rate Respiratory Effort Respiratory Depth Respiratory Pattern Blood Pressure 122/64 H BP Systolic 122 BP Diastolic 64 Pulse Ox Oxygen Delivery Method 11/07/24 13:51 11/07/24 13:56 11/07/24 13:56 Temperature Temperature Source Pulse Rate 90 Respiratory Rate Respiratory Effort Respiratory Depth Respiratory Pattern Blood Pressure BP Systolic BP Diastolic Pulse Ox 98 97 Oxygen Delivery Method 11/07/24 14:01 11/07/24 14:01 11/07/24 14:03 Temperature Temperature Source Pulse Rate 97 Respiratory Rate Respiratory Effort Respiratory Depth Respiratory Pattern Blood Pressure 127/64 H BP Systolic 127 BP Diastolic 64 Pulse Ox 97 Oxygen Delivery Method 11/07/24 14:03 11/07/24 14:05 11/07/24 14:05 Temperature 97.9 F Temperature Source Temporal Temporal Pulse Rate 90 Respiratory Rate 16 Respiratory Effort Respiratory Depth Respiratory Pattern Blood Pressure BP Systolic BP Diastolic Pulse Ox Oxygen Delivery Method Room Air 11/07/24 14:06 11/07/24 14:06 11/07/24 14:11 Temperature Temperature Source Pulse Rate 90 94 Respiratory Rate Respiratory Effort Respiratory Depth Respiratory Pattern Blood Pressure BP Systolic BP Diastolic Pulse Ox 97 Oxygen Delivery Method 11/07/24 14:11 11/07/24 15:24 11/07/24 15:24 Temperature Temperature Source Pulse Rate 92 Respiratory Rate Respiratory Effort Respiratory Depth Respiratory Pattern Blood Pressure 138/69 H BP Systolic 138 BP Diastolic 69 Pulse Ox 97 Oxygen Delivery Method 11/07/24 15:24 11/07/24 15:24 11/07/24 15:27 Temperature 98.9 F Temperature Source Temporal Temporal Pulse Rate 90 Respiratory Rate 16 Respiratory Effort Normal Respiratory Depth Normal Respiratory Pattern Normal Blood Pressure BP Systolic BP Diastolic Pulse Ox Oxygen Delivery Method Room Air 11/07/24 15:27 11/07/24 16:18 11/07/24 16:18 Temperature Temperature Source Pulse Rate 87 Respiratory Rate Respiratory Effort Respiratory Depth Respiratory Pattern Blood Pressure 149/72 H BP Systolic 149 BP Diastolic 72 Pulse Ox 99 Oxygen Delivery Method 11/07/24 16:18 11/07/24 16:18 11/07/24 16:19 Temperature 98.7 F Temperature Source Temporal Temporal Pulse Rate 88 89 Respiratory Rate 16 Respiratory Effort Respiratory Depth Respiratory Pattern Blood Pressure BP Systolic BP Diastolic Pulse Ox 98 Oxygen Delivery Method Room Air 11/07/24 16:19 11/07/24 17:43 11/07/24 17:43 Temperature Temperature Source Pulse Rate 92 Respiratory Rate Respiratory Effort Respiratory Depth Respiratory Pattern Blood Pressure 132/73 H BP Systolic 132 BP Diastolic 73 Pulse Ox 98 Oxygen Delivery Method 11/07/24 17:43 11/07/24 17:44 11/07/24 17:44 Temperature 98.3 F Temperature Source Temporal Temporal Pulse Rate 91 Respiratory Rate 18 Respiratory Effort Normal Respiratory Depth Normal Respiratory Pattern Normal Blood Pressure BP Systolic BP Diastolic Pulse Ox 98 99 Oxygen Delivery Method Room Air Weight Weight: 89.2 kg Body Mass Index (BMI) 29.9 Labs Labs Labs: Blood Type O POSITIVE Antibody Screen NEGATIVE Hct 28.8 % (37-47) L Hgb 9.6 g/dL (12.0-15.0) L Obstetrics Ultrasound Syphilis Total Ab Pending Assessment & Plan (1) 37 weeks gestation of : (2) Severe pre-eclampsia affecting eighth : PLAN: Plan Magnesium therapy GBS negative Lopes/pit
[2024-11-07] MEDS: Acetaminophen 500 MG Tablet PO (17:54)
[2024-11-07] MEDS: 0.9% Normal Saline Single 100 ML IV.SOLN. INTRA-UTER (17:58)
--- NOTE | 2024-11-07 18:07 | PCM.PN.OB ---
Subjective Subjective Attempted to place Lopes bulb. Unable to pass between cervix and head Objective Data Objective Data Vital Signs: Vital Signs Temp Pulse Resp BP Pulse Ox O2 Del Method 98.3 F 91 18 132/73 H 99 Room Air 11/07/24 17:44 11/07/24 17:44 11/07/24 17:44 11/07/24 17:43 11/07/24 17:44 11/07/24 17:44 Oxygen Delivery Method Room Air Weight: 89.2 kg Body Mass Index (BMI) 29.9 Intake & Output: Intake and Output for Last 24 Hours 11/06/24 11/06/24 11/07/24 00:59 23:59 23:59 Intake Total 350 / 350 Output Total 775 / 775 Balance -425 / -425 Lab / Micro Data 11/07/24 10:50 11/07/24 10:50 Labs: Laboratory Results - last 24 hr 11/07/24 10:50: WBC 8.4, RBC 3.14 L, Hgb 9.6 L, Hct 28.8 L, MCV 91.7, MCH 30.6, MCHC 33.3, RDW Std Deviation 42.1, RDW Coeff of Adam 12.7, Plt Count 175, MPV 11.2, Creatinine 0.59 L, Estim Creat Clear Calc 145.15, Est GFR (MDRD) Non-Af 115, Uric Acid 6.0, AST 14, ALT 5 11/07/24 11:15: U Random Total Protein 20.7 H, Urine Creatinine 133.00, Protein/Creatinin Ratio 156 11/07/24 11:25: Blood Type O POSITIVE, Antibody Screen NEGATIVE 11/07/24 12:19: POC Glucose 70 L 11/07/24 13:52: POC Glucose 72 L Assessment & Plan (1) Severe pre-eclampsia affecting eighth : (2) 37 weeks gestation of :
[2024-11-07] MEDS: Oxytocin 15 Units/NS 250ml 15 UNITS/250 ML IV.SOLN 2 UNITS IV ×2 (18:09→23:15)
[2024-11-07] MEDS: Mag Hydrox/Al Hydrox/Simeth 30 ML UDC PO (18:17)
[2024-11-07 18:19] LABS: Syphilis Antibodies Nonreactive (Nonreactive)
[2024-11-07 18:39] LABS: Bedside Glucose 85 mg/dL (74-106)
[2024-11-07] MEDS: LACTATED RINGERS 500 ML 999 ML IV (19:46)
[2024-11-07] MEDS: fentaNYL-bupivacaine (epidural) 100 ML BAG EPIDURAL (20:27)
[2024-11-07] MEDS: Succinylcholine Chloride 200 MG/10 ML SYRINGE IV (20:49)
[2024-11-07] MEDS: Propofol 10MG/Ml 1,000 MG/100 ML Bottle 5.4 MG CONT INF (21:06)
--- NOTE | 2024-11-07 21:20 | PCM.PN.OB ---
Subjective Subjective S/p epidural placement. BP dropped and patient became short of breath. SpO2 99-100%. Pulse 80s. Suspected high spinal after epidural bolus. Anesthesia present to maintain airway. FURNITURE MECHANIC called for additional assistance. HR difficult to trace as patient was thrashing during airway management. Once patient was sedated found with US guidance and found to be 140s. movement noted on US and externally while holding EFM in place. Pitocin and Magnesium discontinued. Anesthesia and Medicine attendings present. Please see their notes for details. I maintained monitoring during the intubation process. FHR was reassuring. Decreased variability was noted after administration of Diprivan. Variability and accelerations returned as sedation was discontinued and patient was extubated. Pitocin withheld until tracing reactive. Magnesium was not restarted. BPs have been normal since hypotensive event following epidural placement. Objective Data Objective Data Vital Signs: Vital Signs Temp Pulse Resp BP Pulse Ox O2 Del Method 99 F 122 H 16 143/60 H 84 Room Air 11/07/24 18:47 11/07/24 21:10 11/07/24 20:06 11/07/24 21:10 11/07/24 21:01 11/07/24 18:47 Oxygen Delivery Method Room Air Weight: 89.2 kg Body Mass Index (BMI) 29.9 Intake & Output: Intake and Output for Last 24 Hours 11/06/24 11/06/24 11/07/24 00:59 23:59 23:59 Intake Total 401.2 / 401.2 Output Total 775 / 775 Balance -373.8 / -373.8 Lab / Micro Data 11/07/24 21:49 11/07/24 21:49 Labs: Laboratory Results - last 24 hr 11/07/24 10:50: WBC 8.4, RBC 3.14 L, Hgb 9.6 L, Hct 28.8 L, MCV 91.7, MCH 30.6, MCHC 33.3, RDW Std Deviation 42.1, RDW Coeff of Adam 12.7, Plt Count 175, MPV 11.2, Creatinine 0.59 L, Estim Creat Clear Calc 145.15, Est GFR (MDRD) Non-Af 115, Uric Acid 6.0, AST 14, ALT 5 11/07/24 11:15: U Random Total Protein 20.7 H, Urine Creatinine 133.00, Protein/Creatinin Ratio 156 11/07/24 11:25: Syphilis Total Ab Nonreactive, Blood Type O POSITIVE, Antibody Screen NEGATIVE 11/07/24 12:19: POC Glucose 70 L 11/07/24 13:52: POC Glucose 72 L 11/07/24 18:21: POC Glucose 85 Assessment & Plan (1) GDM, class A2: (2) 37 weeks gestation of : (3) Pre-eclampsia affecting childbirth: PLAN: Plan Pitocin to be restarted with reactive tracing. Plan AROM when able. Per anesthesia epidural is no longer an option for this delivery
[2024-11-07] MEDS: Ondansetron 4 MG/2 ML Vial IV (21:40)
[2024-11-07 21:59] LABS: Absolute Lymphocyte Count 1.65 X10^3/uL (0.83-4.51); Absolute Neutrophil Count 10.2 X10^3/uL (2.0-7.7); Basophil# 0.05 X10^3/uL; Basophil% 0.4 % (0-1); Hematocrit 30.4 % (37-47); Hemoglobin 10.2 g/dL (12.0-15.0); Lymphocyte # 1.65 X10^3/ul (0.83-4.51); Lymphocyte % 13.2 % (19-41); Mean Corp Hgb Conc 33.6 g/dL (32-36); Mean Corpuscular Hgb 31.3 pg (27.0-32.0); Mean Corpuscular Volume 93.3 fL (81-99); Mean Platelet Vol. 11.3 fl (6.2-12.0); Monocyte# 0.56 X10^3/uL; Monocyte% 4.5 % (0-10); NRBC Flagged by Analyzer 0 % (0-5); Neutrophil # 10.19 X10^3/uL (2.7-7.7); Neutrophil % 81.5 % (47-70); Platelet Count 199 K/mm3 (150-450); RBC Distribution Width CV 12.7 % (11.6-14.6); RBC Distribution Width SD 43.1 fl (35.1-43.9); Red Blood Count 3.26 M/mm3 (4.2-5.4); White Blood Count 12.5 K/mm3 (4.4-11.0)
--- NOTE | 2024-11-07 21:59 | PN_ITS ---
Progress Note Called to patient room at 2049. Patient reported to have symptoms of high spinal following epidural. As per Bg Greco CRNA, patient received epidural at 2022. Patient had a negative test dose of lidocaine:epinephrine which was diluted to 10 cc. Patient received epidural at L4-L5 level by Fannie, with (+) RAJ at 5 cm in the space. During placement of epidural, a paresthesia was noted down the patient's left lower extremity. Touhy redirected to right, and aspiration was (-). The catheter was left at 10 cm at the skin. At 2034, Fannie was called for hypotension, along with the patient complaining of chest pain and shakiness, along with complaints of difficulty breathing and vision changes and arms tingling. The epidural was immediately stopped. The patient was induced with propofol (150 mg), succinylcholine (100 mg), and phenylephrine (200 mcg) at 2048, intubated at 2050 with a 6.5 ETT 21 cm @ lip with glidescope. The patient was placed into a 15 degree reverse T position to help reduce the potential high spinal. Potential differentials for the event: high spinal, pre-E progression to Eclampsia, and intravascular injection. The patient was kept on the ventilator brought by the ICU and RT team, while sedated, in order for the potential high spinal to wear off. The patient was breathing at TV of 800+ spontaneously. At 2137 the patient was successfully extubated. The patient had some episodes of emesis, and was immediately placed into [place] to help reduce risk of aspiration. The patient then sat up and proceeded to 'dry heave', with no further emesis. Upon waking up, the patient had vague complaints of unable to see, while breathing spontaneously, and moving all extremities with 5/5 strength. She was given 4 mg IV zofran. Due to the intubation and possibly aspiration, a CXR was ordered, which was read by myself as having no acute abnormalities. Still awaiting the official read. The patient's symptoms of difficulty seeing spontaneously resolved, and the patient continues to complain of contraction pain. Due to the symptoms exhibited by the patient and the possibility of intravascular or intrathecal placement, the decision was made by me to pull the epidural to ensure a similar event does not occur. I discussed with the attending entry level sales representative the possibility of an opioid OBJECTS CONSERVATOR infusion, but given her multiparity and speed at which her labor is expected to progress, the decision was made not to administer an opioid OBJECTS CONSERVATOR due to the possibility of medication transmitting to her baby. Anesthesia will sign off on this patient but is available if new symptoms or concerns develop.
--- NOTE | 2024-11-07 22:12 | RAD_ITS ---
PROCEDURE: CHEST 1 VIEW (PORTABLE) REASON FOR EXAM: EXTUBATION TECHNIQUE: Frontal view of the chest. COMPARISON: Yesterday FINDINGS: The heart size is normal. The lungs are clear. RAD/Chest 1 View (Portable) IMPRESSION: NEGATIVE CHEST. Reading Location: NURY
[2024-11-07 22:37] LABS: Bedside Glucose 91 mg/dL (74-106)
[2024-11-07 22:39] LABS: Anion Gap 17 (5-15); BUN 9 mg/dL (4-19); BUN/Creat Ratio 12.7 RATIO (10-20); Calcium,Total 7.9 mg/dL (7.6-11.0); Carbon Dioxide 14.3 mmol/L (21.0-32.0); Chloride 100 mmol/L (98-108); EST Glomerular Filtration Rate 111 (>60); Estimated Creatinine Clearance 122.34 ml/min (50-250); Glucose 114 mg/dL (70-99); Potassium 3.7 mmol/L (3.3-5.1); Sodium Level 132 mmol/L (133-145)
[2024-11-07 23:06] LABS: Magnesium 5.1 mg/dL (1.5-2.2)
[2024-11-08] VITALS (109 sets, daily range): BP systolic 115–148; BP diastolic 55–80; PULSE 71–102; RESP 16; TEMP 36.3–37.5; O2SAT 78–100
[2024-11-08] MEDS: Mag Hydrox/Al Hydrox/Simeth 30 ML UDC PO (00:47)
--- NOTE | 2024-11-08 01:37 | NURSING ---
REGIONAL SALES LEADER called at 2044 per Nedra Cooper RN following epidural placement. Patient reporting chest pain and numbness to arms bilaterally. A Greco NEUROLOGY NURSE at bedside bagging patient with bag valve mask requesting for intubation equiptment and medication. Dr Collado at bedside assessing patient. vitals bp 71/43 temp 98.6 HR 72 RR 18, charger operator helper called to room Nedra Dugan RN -Kennel Worker Enrike Patterson, Adan Snow ED RN, and Dr Reynaga arrived to unit with intubation kit. 2047 Propofol 150mg IVP per VORB A Greco NEUROLOGY NURSE given by Dr Reynaga 2048 ECG leads applied, continous pulse ox remains on Succinylcholine 100mg IVP VORB A Greco given by Dr Reynaga Phenylephrine 200mcg IVP VORB A Greco given by Dr Reynaga 2049 113/67 HR 93 2050 Intubated per A Greco NEUROLOGY NURSE 6.5 et tube 21 at the lip, RT at bedside, Dr Collado at bedside assessing FHR 2053 94/54 133 100% US brought to bedside, movement palpated per Dr Collado 2054 107/70 HR 97 99% 2055 111/63 HR 133 100% 2057 Propofol 50mg IVP per A Greco NEUROLOGY NURSE VORB 2058 Propofol 50mg IVP per A Greco NEUROLOGY NURSE VORB 2099 119/77 HR 133 99% 2102 Propofol 60mg IVP per A Greco NEUROLOGY NURSE VORB 2104 116/74 HR 82 100% 2105 [id number] infusion initiated at 10mcg/kg/min per Enrike Patterson RN 2106 Propofol infusion increased to 50mcg/kg/min per A Greco VORB 2109 118/76 HR 80 99% 2112 Propofol infusion increased to 125mcg/kg/min by Dr Chavez 2114 122/77 HR 80 100% 2115 Propofol infusion increased to 175mcg/kg/min by Dr Chavez, LR increased to 170ml/hr, soft wrist restraints applied 2118 Adan Snow attempt at 2nd iv, at bedside and updated per staff 2121 2nd iv placed per Adan Snow RN 2129 119/78 HR 74 100% Dr Chavez and RT remains at bedside monitoring patient and vent, updated per Carmine Greco and Dr Chavez 2131 Propofol infusion d/c 2134 Patient arousing to verbal stim, moving extremities x4 2137 Extubated to NC, chest xray order received. Nellie guevara RN, Nedra Dugan RN, Carmine Greco NEUROLOGY NURSE, Carmine Chavez anesthesia, R Genesis RT, Enrike Badillo RT, Rosa Hickman RT, Adan BEACH RN, Santiago Perez RN, Enrike Patterson RN supervisor toy assembly, Carmine Cavazos RN, David Ford RN, Nellie Argueta, Carmine Mendoza RN all in room during REGIONAL SALES LEADER.
[2024-11-08 04:10] LABS: Bedside Glucose 87 mg/dL (74-106)
[2024-11-08] MEDS: Phenylephrine 10 MG/ML Vial IV (05:12)
[2024-11-08] MEDS: Acetaminophen 500 MG Tablet PO (06:25)
[2024-11-08 08:33] LABS: Bedside Glucose 88 mg/dL (74-106)
--- NOTE | 2024-11-08 08:42 | PN.OBGYN_ITS ---
Subjective Subjective AROM for clear fluid 2-3 cm/70/-2 Cat I. Pitocin IOL. No epidural Objective Data Objective Data Vital Signs: Vital Signs Temp Pulse Resp BP Pulse Ox O2 Del Method O2 Flow Rate 99.2 F H 89 16 130/76 H 98 Nasal Cannula 2 11/08/24 07:33 11/08/24 08:07 11/08/24 07:33 11/08/24 07:34 11/08/24 08:07 11/07/24 21:40 11/07/24 21:40 FiO2 60 11/07/24 21:10 Oxygen Flow Rate (L/min) 2 Oxygen Delivery Method Nasal Cannula Weight: 89.2 kg Body Mass Index (BMI) 29.9 Intake & Output: Intake and Output for Last 24 Hours 11/06/24 11/07/24 11/08/24 23:59 23:59 23:59 Intake Total 2326.15 / 2326.15 55.73 / 55.73 Output Total 875 / 875 Balance 1451.15 / 1451.15 55.73 / 55.73 Lab / Micro Data 11/07/24 21:49 11/07/24 21:49 Labs: Laboratory Results - last 24 hr 11/07/24 10:50: WBC 8.4, RBC 3.14 L, Hgb 9.6 L, Hct 28.8 L, MCV 91.7, MCH 30.6, MCHC 33.3, RDW Std Deviation 42.1, RDW Coeff of Adam 12.7, Plt Count 175, MPV 11.2, Creatinine 0.59 L, Estim Creat Clear Calc 145.15, Est GFR (MDRD) Non-Af 115, Uric Acid 6.0, AST 14, ALT 5 11/07/24 11:15: U Random Total Protein 20.7 H, Urine Creatinine 133.00, Protein/Creatinin Ratio 156 11/07/24 11:25: Syphilis Total Ab Nonreactive, Blood Type O POSITIVE, Antibody Screen NEGATIVE 11/07/24 12:19: POC Glucose 70 L 11/07/24 13:52: POC Glucose 72 L 11/07/24 18:21: POC Glucose 85 11/07/24 21:49: WBC 12.5 H, RBC 3.26 L, Hgb 10.2 L, Hct 30.4 L, MCV 93.3, MCH 31.3, MCHC 33.6, RDW Std Deviation 43.1, RDW Coeff of Adam 12.7, Plt Count 199, MPV 11.3, Immature Gran % (Auto) 0.400, Neut % (Auto) 81.5 H, Lymph % (Auto) 13.2 L, [place] % (Auto) 4.5, Eos % (Auto) 0.0, Baso % (Auto) 0.4, Absolute Neuts (auto) 10.2 H, Absolute Lymphs (auto) 1.65, Nucleated RBC % 0, Sodium 132 L, Potassium 3.7, Chloride 100, Carbon Dioxide 14.3 L, Anion Gap 17 H, BUN 9, Creatinine 0.70, Estim Creat Clear Calc 122.34, Est GFR (MDRD) Non-Af 111, BUN/Creatinine Ratio 12.7, Glucose 114 H, Calcium 7.9, Magnesium 5.1 H* 11/07/24 22:16: POC Glucose 91 11/08/24 03:48: POC Glucose 87 11/08/24 07:48: POC Glucose 88 Radiography Diagnostic Testing: Radiology Impression Chest X-Ray 11/07/24 22:12 IMPRESSION: NEGATIVE CHEST. Reading Location: NURY Assessment & Plan (1) Pre-eclampsia affecting childbirth: PLAN: Mag off due to low BP and anesthesia event (2) 37 weeks gestation of : (3) GDM, class A2: PLAN: BG normal PLAN: Plan Pitocin per protocol. No Epidural per anesthesia
[2024-11-08] MEDS: fentaNYL 100 MCG/2 ML Ampul IV ×2 (09:24→10:19)
[2024-11-08 10:11] LABS: Bedside Glucose 83 mg/dL (74-106)
--- NOTE | 2024-11-08 11:11 | OB.VAGDELI_ITS ---
Maternal Data Information SHELDON Calculator Estimated Delivery Date Method Current WG Current Estimate 11/25/24 Manual 37w 4d Vaginal Delivery Maternal Presentation Maternal Presentation: Medically Indicated Induction Type of Induction: Pitocin, Amniotomy and Cytotec Vaginal Delivery Information Procedure Performed: Spontaneous Vaginal Delivery Surgeon/Practitioner: Cinthya Monterroso Date of Procedure: 11/08/24 Pre-Procedure Diagnosis: AMA, 37 weeks gestation, GDMA2, PRE Eclampsia with severe features, GrandMultiparity Post-Procedure Diagnosis: same, live male Type of anesthesia: None Estimated Blood Loss: 100 Time of Delivery: 10:53 Findings Description of procedure: Patient rapidly progressed to fully dilated. I was already en route to the hospital. By the time I arrived in the unit the baby was delivered and the certified addiction counselor was in the room for resuscitation. The cord was already clamped. At this time I instructed them to start Pitocin. I obtained cord blood. At this time with gentle traction of the cord the placenta was delivered intact without complication. The vagina and perineum were evaluated it was found to be intact no sutures needed. Presentation: Vertex Amniotic Membrane Rupture Type: Artificial Amniotic Fluid Description: Clear Placental Delivery Description: Expressed Placenta Disposition: [facility] Specimen collected: No Cord Vessel Description: 3 Vessels Cord Entanglement: None Infant A Gender: Male (1 minute): 6 (5 minute): 7 (10 at 10min ) Delayed Cord Clamping: No Tool Room Machinist appointment coordinator: No Post Vaginal Deli Medications given after delivery: IV Pitocin Episiotomy Description: None Laceration: None Complication Complications: No
[2024-11-08] MEDS: Oxytocin 15 Units/NS 250ml 15 UNITS/250 ML IV.SOLN 83 UNITS IV (11:35)
[2024-11-08] MEDS: NIFEdipine 30 MG Tablet PO (11:41)
[2024-11-08] MEDS: Magnesium Sulfate 4gm/100mL 4 GM/100 ML IV.SOLN. IV (11:51)
[2024-11-08] MEDS: Magnesium Sulfate 20 GM/500 ML BAG IV ×2 (12:12→22:07)
[2024-11-08 12:22] LABS: Bedside Glucose 100 mg/dL (74-106)
[2024-11-08] MEDS: Ibuprofen 600 MG Tablet PO (17:42)
[2024-11-09] VITALS (31 sets, daily range): BP systolic 112–143; BP diastolic 57–83; PULSE 77–190; RESP 15–18; TEMP 36.3–36.9; O2SAT 82–99
[2024-11-09] MEDS: Ibuprofen 600 MG Tablet PO ×3 (00:47→17:20)
[2024-11-09] MEDS: Acetaminophen 500 MG Tablet PO (05:08)
[2024-11-09 05:31] LABS: Bedside Glucose 113 mg/dL (74-106)
[2024-11-09] MEDS: Magnesium Sulfate 20 GM/500 ML BAG IV (07:47)
--- NOTE | 2024-11-09 08:31 | PCM.PN.BLA ---
Progress Note Pain well controlled. Average lochia. Denies PERRY or visual changes. Lucio. regular diet. Physical Exam Narrative 1+ edema, no clonus Const alert and no apparent distress Narrative: Fundus firm, below umbilicus. Assessment & Plan Assessment/Plan (1) Severe pre-eclampsia affecting eighth : (2) 37 weeks gestation of : (3) (spontaneous vaginal delivery): PLAN: Plan PPD#1 s/p . Preeclampsia, on mag, off at 24 hrs. BP stable doing well routine PP care, monitor BP
[2024-11-09] MEDS: Benzocaine/Lanolin/Aloe Vera 85 GM Spray 1 SPRAY TOPICAL (10:14)
[2024-11-09] MEDS: Hydrocortisone 2.5% Crm 1 APPLIC TOPICAL (10:14)
[2024-11-09] MEDS: Senna/Docusate Sodium 1 Tablet PO (10:40)
[2024-11-10] VITALS (9 sets, daily range): BP systolic 133–155; BP diastolic 61–88; PULSE 70–90; RESP 16; TEMP 36.7–37.2; O2SAT 97–99
[2024-11-10] MEDS: Ibuprofen 600 MG Tablet PO ×3 (03:43→23:22)
--- NOTE | 2024-11-10 08:55 | PCM.PN.CNM ---
Subjective Subjective Patient seen at bedside. Reports continuation of anxiety and feels heart palpitations at times. Infant had some episodes of fast breathing and pediatrics are monitoring him. Baby remains in room at bedside. Patient reports feeling weak and tired. Some difficulty getting up to bathroom. She denies any headache, vision changes, SOB, or CP. Objective Data Objective Data Vital Signs: Vital Signs Temp Pulse Resp BP Pulse Ox O2 Del Method O2 Flow Rate 98.2 F 71 16 133/61 H 97 Room Air 2 11/10/24 02:00 11/10/24 07:52 11/10/24 02:00 11/10/24 07:52 11/10/24 02:00 11/10/24 02:00 11/07/24 21:40 FiO2 60 11/07/24 21:10 Oxygen Flow Rate (L/min) 2 Oxygen Delivery Method Room Air Weight: 196 lb 10.437 oz Body Mass Index (BMI) 29.9 Intake & Output: Intake and Output for Last 24 Hours 11/08/24 11/09/24 11/10/24 23:59 23:59 23:59 Intake Total 2119.66 / 2119.66 1335.0 / 1335.0 Output Total 800 / 800 1500 / 1500 Balance 1319.66 / 1319.66 -165.0 / -165.0 Lab / Micro Data Attestation: I reviewed the patient's lab results. 11/07/24 21:49 11/07/24 21:49 ROS Eyes Eyes: Denies change in vision or spots in vision ENT HEENT: Denies headache(s) Cardiovascular Cardiovascular: Reports fatigue, lightheadedness and racing heartbeat; Denies abdominal pain, chest pain or dyspnea Respiratory/Chest Respiratory/Chest: Denies cough, dyspnea, shortness of breath at rest or shortness of breath with exertion Gastrointestinal Gastrointestinal: Denies abdominal pain, diarrhea or vomiting Genitourinary Genitourinary: Denies change in urinary stream, difficulty urinating or dysuria Musculoskeletal Musculoskeletal: Reports none Integumentary Integumentary: Denies rash Neurologic Neurologic: Denies dizziness, headache(s), memory loss or weakness Physical Exam Const alert and no apparent distress General Appearance: cooperative and comfortable Exam Limitations: no limitations HEENT normocephalic Eyes General Eye: normal appearance of both eyes Neck full ROM General: normal visual inspection Chest Chest: symmetrical chest wall rise Resp normal respiratory effort and normal air movement Effort and Inspection: symmetric chest movement Auscultation: clear to auscultation bilaterally Cardio regular rate and regular rhythm GI normal to inspection, nondistended, normoactive bowel sounds Back/Spine normal ROM Extremity full ROM and no calf tenderness General Extremity: normal exam except as noted Skin no rashes or lesions noted Neuro oriented x3 Speech: speech normal Psych mental status grossly normal Thought Process: normal thought process Assessment & Plan (1) (spontaneous vaginal delivery): (2) Pre-eclampsia affecting childbirth: (3) Severe pre-eclampsia affecting eighth : PLAN: Plan PPD 2 - Severe preeclampsia Continue blood pressure monitoring Increase ambulation support Anticipate discharge home tomorrow
[2024-11-10] MEDS: NIFEdipine 30 MG Tablet PO (10:41)
[2024-11-11] MEDS: Acetaminophen 500 MG Tablet PO ×2 (01:47→11:04)
[2024-11-11 01:49] VITALS: BP 133/74; PULSE 87
[2024-11-11 01:52] VITALS: BP 133/74; PULSE 87; RESP 16; TEMP 36.7; O2SAT 99
[2024-11-11] MEDS: Ibuprofen 600 MG Tablet PO (06:58)
[2024-11-11 07:58] VITALS: BP 132/77; PULSE 83; PULSE 87; RESP 16; TEMP 36.7; O2SAT 97
--- NOTE | 2024-11-11 08:27 | PCM.DC.SUM ---
Providers Date of Admission: 11/07/24 Primary Care Physician: Dr. Vinh Johnson MD Reason For Visit: VAGINAL DELIVERY Diagnosis Discharge Diagnosis (1) (spontaneous vaginal delivery): Status: Acute Code(s): O80 - Encounter for full-term uncomplicated delivery (2) Pre-eclampsia affecting childbirth: Status: Acute Code(s): O14.94 - Unspecified pre-eclampsia, complicating childbirth (3) Severe pre-eclampsia affecting eighth : Status: Acute Code(s): O14.10 - Severe pre-eclampsia, unspecified trimester; O09.40 - Supervision of with grand multiparity, unspecified trimester Plan PPD 3 - Severe preeclampsia Blood pressures stable at 130-140/70-80's Continue Procardia 30 mg XR PO daily- RX sent support Pain control Preeclampsia precautions reviewed and when to contact office D/C home with follow up this week in office for BP check Medications at Discharge Home Medications linaclotide 72 mcg capsule (Linzess) 72 mcg PO DAILY diverticulitis 08/26/24 vit no.95-ferrous fumarate 28 mg-folic acid 800 mcg tablet () 1 tab PO DAILY 08/26/24 venlafaxine 150 mg capsule,extended release 24 hr 150 mg PO DAILY 08/26/24 pantoprazole 20 mg tablet,delayed release (Protonix) 20 mg PO DAILY 10/23/24 acetaminophen 500 mg tablet 500 - 1,000 mg (1 - 2 x 500 mg) PO Q6H PRN PRN Pain Score 1-3 #0 tabs 11/11/24 ibuprofen 600 mg tablet 600 mg PO Q6H PRN PRN Pain Score 1-10 #0 tabs 11/11/24 nifedipine 30 mg tablet,extended release 24 hr 30 mg PO DAILY 30 days #30 tabs 11/11/24 Hospital Course Operations None Procedures None Summary of Care Provided Minutes Spent on Discharge: 20 Hospital Course: Patient had vaginal delivery. Physical Exam Narrative Patient seen at bedside. Denies pain. Ambulating and voiding without difficulty. Lochia decreased. Denies headache, vision changes, SOB, or CP. Desires discharge home today. Const alert and oriented x3 General Appearance: Negative for in distress HEENT normocephalic Eyes General Eye: normal appearance of both eyes Neck General: normal visual inspection Chest Chest: symmetrical chest wall rise Resp normal respiratory effort and normal air movement Effort and Inspection: symmetric chest movement; Negative for tachypneic Auscultation: clear to auscultation bilaterally Cardio regular rate and regular rhythm Peripheral Pulses: pulses 2+ throughout GI normal to inspection, nondistended, normoactive bowel sounds Narrative: Ice to perineum OB / External & Speculum: vaginal bleeding and other Lochia decreasing Uterus Palpation: uterus fundus firm (Below U) Extremity normal to inspection, full ROM and normal capillary refill Skin no rashes or lesions noted Neuro oriented x3, CN's II-XII intact bilaterally and gait normal Psych mental status grossly normal, thought process normal and activity/motor behavior normal Weight / BMI Weight Weight: 196 lb 10.437 oz Body Mass Index (BMI) 29.9 ABG / Lab / Microbiology Data 11/07/24 21:49 11/07/24 21:49 D/C Instructions Discharge Diet: No restrictions Discharge Activity: Return to Normal Activity, No Restrictions, May Drive, May Shower and May Take a Tub Bath (Warm water only. No bath salts, soaps, bubbles) May resume sexual activity in: 6-8 weeks Weight Bearing Status: Weight bearing as tolerated Call your doctor if you observe: Fever of 101 or Higher, Inability to urinate, Using more than 1 pad per hour, Shortness of breath, Dizziness, Chest pain, Calf discomfort and Uncontrolled pain DC O2, CPAP, BIPAP Needs PSN CPAP & BiPAP: BiPAP & CPAP Settings per PSN Fraction of Inspired Oxygen ( 60 11/07/24 21:10 FIO2) Home O2 Discharge instructions: No Please Follow Up With: [facility] Andrey PORRAS When: 2 weeks in office or virtual Meaningful Use Info Meaningful Use Meaningful Use Diagnoses (Choose all that apply): None applicable Ischemic Stroke Statin Dosing Therapy Reference: STATIN DOSE THERAPY REFERENCE: * Patients > 75 years receive moderate or high dose statin therapy. * Patients 75 years or YOUNGER should receive HIGH intensity statin dose unless contraindicated. You will be required to document reason for non-treatment if statin daily dose does not meet guidelines. HIGH DOSE STATIN THERAPY DAILY Atorvastatin > than or = to 40 mg Rosuvastatin > than or = to 20 mg Amlodipine + Atorvastatin > than or = to 2.5/40 mg Ezetimibe + Simvastatin 10/80 mg Simvastatin 80mg Discharge Plan Admission Admit Date/Time: 11/07/24 11:15 Primary Reason for Your Visit: Labor and Delivery Attending Provider: Joaquina Collado Primary Care Provider: Vinh Johnson Discharge Orders/Prescriptions Prescriptions: New nifedipine 30 mg Tablet Extended Release 24hr 30 mg PO DAILY 30 Days Qty: 30 1RF acetaminophen 500 mg Tablet 500 - 1,000 mg PO Q6H PRN PRN (Reason: Pain Score 1-3) Qty: 0 0RF ibuprofen 600 mg Tablet 600 mg PO Q6H PRN PRN (Reason: Pain Score 1-10) Qty: 0 0RF Continued PNV cmb#95-ferrous fumarate-FA [] 28 mg iron- 800 mcg tablet 1 tab PO DAILY venlafaxine 150 mg capsule,extended release 24hr 150 mg PO DAILY Discontinued Humulin N NPH Insulin KwikPen 100 unit/mL (3 mL) insulin pen 10 unit subcut DAILY No Action Linzess 72 mcg capsule 72 mcg PO DAILY pantoprazole [Protonix] 20 mg tablet,delayed release (DR/EC) 20 mg PO DAILY Referrals / Follow Up: Holly Hamlin CNM [Med Staff - Adv Practice Prof] - Vinh Johnson MD [Primary Care Provider] - Disposition Disposition (needs filled in before D/C Order can be placed): Home, Self Care
[2024-11-11] MEDS: NIFEdipine 10 MG Capsule 20 MG PO (11:16)
[2024-11-11 11:46] VITALS: BP 147/80; PULSE 95; RESP 16; TEMP 37.2; O2SAT 98
[2024-11-11 11:48] VITALS: BP 147/80; PULSE 96
--- NOTE | 2024-11-14 14:26 | CASEMGMT ---
Social Work Assessment Labor and Delivery Unit Patient Address: [address] [place] [address] [address] [place] [address] Phone number: [phone] Date of Referral: 11/10/24 Time of Referral:? [phone] Referred By: Dr. Collado Date of Intervention: ?11/10/24? Time of Intervention:? 1119 Reason for Referral:? anxiety Sw completed chart review and acknowledges social work consult due to maternal mental health. Sw presented to bedside and introduced self to mother of baby (MOB- Xochilt) and father of baby (FOB- Jovi). Sw explained reason for sw involvement and completed psychosocial assessment. History obtained from: medical records, MOB and FOB Household composition: Currently residing in the family home is STERLING FERNANDEZ, their four older children: Serjio (19), Brain (15), Jada (8) and Jameel (4). [place] baby to be included in residence when ready for discharge. Parents report that was unplanned but accepted, they are eager to get discharged so the older children are able to meet him. Parents deny any problems or concerns with housing, stating that it is safe and secure. Patient's parent/guardian status:? ?REBECCA states that she and STERLING have been together for 21 years after being introduced to each other by friends and family members. baby is parents 5th baby together. No concerns reported of domestic violence or intimate partner violence. Medical History: ?REBECCA is 44 year old female who is 8, para 4- now 5 following labor and delivery of . REBECCA received routine care during with [facility]. REBECCA presented to hospital for induction of labor and delivered baby via vaginal delivery on 11/08/24 at 37 weeks gestation. Baby boy, named Erick, was born weighing 7lb 4oz with apgars of 6 and 7 at one and five minutes of life respectfully. REBECCA is breast feeding and baby will be followed by Dr. Stephens for pediatrics. Educational Status:? Both parents graduated from high school, no advanced education/ degree. No problems with reading, learning or comprehension. Financial Status:Both parents are gainfully employed outside of the home. FOB works for [employer] and REBECCA is employed at [employer]. Infant Supplies: All necessary baby supplies obtained, including: car seat, safe sleep space, clothes, diapers and wipes Childcare/Caregiver(s):? MOB will be the primary caregiver to baby, along with FOB. When both parents are working they have family who can provide childcare. Transportation:?? Both parents have their drivers license and reliable means of transportation. No barriers. Programs/Agencies Involved: ??Parents are not connected to any community agencies that assist them financially. ? Children Services/Legal Issues:??? No history of children services involvement, no issues or concerns warranting referral to be made at this time. Behavioral Health Issues: ??Mental Health History:?FONellie denies mental health history. REBECCA admits to history of anxiety. MOB states that she is prescribed Venalfaxine to help her manage her mental health symptoms. ?? Substance Use History: Parents deny substance use prior to and during . ? Family History:??Parents deny family history of substance use or significant mental health diagnoses. ??? Drug Screens: No drug screens observed while completing chart review. Family/Social Stressors:? Parents deny any problems, concerns or stressors. Support Systems: REBECCA reports that FOB, maternal grandma and congregation friends are her biggest supports. Depression/Shaken Baby/Safe Sleeping: Sw educated parents on signs and symptoms of baby blues and depression and anxiety. MOB states that she has experienced baby blues in the past, but those never transpired or grew into depression or anxiety. MOB states that she and FONellie are both familiar with what symptoms to be mindful of during this period. REBECCA states that FONellie is her biggest support, and if she were to struggle with her mental health during this time he would be able to recognize that and would know how to help and support her. MOB denies feeling sad, anxious or overwhelmed at this time. Sw educated parents on shaken baby prevention and ABCs of safe sleep. Parents express understanding. ASSESSMENT:?MOB and baby admitted following labor and delivery of . Sw consult due to maternal mental health history. MOB disclosed history of baby blues, but denies history. MOB and FOB made and maintained eye contact with sw throughout completion of psychosocial assessment. Both parents participated openly, and conversation flowed naturally. MOB observed sitting comfortably in bed and was holding baby who was sleeping. MOB provided appropriate and loving hands on care to . MOB expresses having a augustin with baby. Parents have natural supports in place and have obtained all necessary baby supplies. PLAN:?? No other services requested or indicated. MOB and baby to be discharged when medically ready. Parents were provided literature regarding: signs and symptoms of baby blues and mood and anxiety disorders, Help Me Grow, shaken baby prevention, ABCs of safe sleep and a list of county resources that are available for them should any needs present themselves. Patrick Lock, SIDE DOOR MAN, MOLDING MANAGER
== END 2024-11-11 12:15 | disposition home or self-care (01) | DRG 807 ==
LOC: WPOUT 11:18 → WP 11:18
PROVIDERS: Student in an Organized Health Care Education/Training Program; Admitting Provider Obstetrics & Gynecology; Referring Provider Obstetrics & Gynecology; Visit Provider Obstetrics & Gynecology
DX: O14.14 Severe pre-eclampsia complicating childbirth (principal); Z37.0 Single live birth; O99.42 Diseases of the circulatory system complicating childbirth; O24.424 Gestational diabetes mellitus in childbirth, insulin controlled; F41.9 Anxiety disorder, unspecified; I95.2 Hypotension due to drugs; O99.344 Other mental disorders complicating childbirth; Z79.899 Other long term (current) drug therapy; O74.6 Other complications of spinal and epidural anesthesia during labor and delivery; R07.9 Chest pain, unspecified; R06.02 Shortness of breath; R20.2 Paresthesia of skin; Z3A.37 37 weeks gestation of pregnancy
CPT/HCPCS: 31500; 59025; 59050; 71045; 80048; 82565; 82570; 82962; 83735; 84156; 84450; 84460; 84550; 85025; 85027; 86780; 86850; 86900; 86901; 94002; 99221; 99252; G0378; G0463; J2405